=== PATIENT | male | born 1955 | race Caucasian/White ===

== ENCOUNTER 2019-12-14 11:38 | Day surgery (SDC) | payer MEDICARE, SELFPAY ==
[2019-12-14 12:33] VITALS: BMI 31.3
[2019-12-14 12:41] VITALS: BP 153/93; PULSE 64; RESP 16; TEMP 36.6; O2SAT 96
--- NOTE | 2019-12-14 14:26 | PC.NURSE ---
patient stated left side, md watts verified left side, marked left side. told bart at desk to change patients schedule to state left not the right
--- NOTE | 2019-12-14 14:35 | HO.ANESPROP2 ---
HPI - Anesthesia Eval Consult details Narrative: 63 m for stent removal, prior anesthesia for colonosopies and renal stents uneventful PMFSH Past Medical History Medical History Former cigarette smoker Kidney stones Social History Social History Smoking Status: Former smoker Smoked in Last 30 Days: No Patient Interested in Nicotine Replacement: No Patient Given Instructions on How to Stop Smoking: No Second Hand Smoke Exposure: No Use of substances other than those prescribed or required for medical reasons: No Advance Directives: No Advance Directives Information Provided: Yes Meds Allergies Allergy/AdvReac Type Severity Reaction Status Date / Time No Known Allergies Allergy Verified 12/14/19 12:32 [No Known Allergies*] Home Medications Medication Instructions Recorded Confirmed Type atenolol 100 mg PO DAILY 12/14/19 12/14/19 History escitalopram oxalate 10 mg PO DAILY 12/14/19 12/14/19 History finasteride 5 mg PO DAILY 12/14/19 12/14/19 History simvastatin 20 mg PO DAILY 12/14/19 12/14/19 History terazosin 10 mg PO BEDTIME 12/14/19 12/14/19 History warfarin [Jantoven] 4 mg PO DAILY 12/14/19 12/14/19 History Exam Exam Date and Time: December 14, 2019 1435 Height,Weight and Vital Signs: Height 5 ft 7 in Weight 90.718 kg Last Vital Signs Temp 97.8 F 12/14/19 12:41 Pulse 64 12/14/19 12:41 Resp 16 12/14/19 12:41 BP 153/93 H 12/14/19 12:41 Pulse Ox 96 12/14/19 12:41 Assessment and Plan Assessment Anesthesia Assessment: Anesthesia Plan Discussed, Consent Obtained and Chart Reviewed Final Anesthetic Review NPO: Yes ASA Class: II Final Preanesthetic Review: No Changes in Pt Med Stat, Meds & Allergies Reviewed, Consent Obtained/Reviewed, Med/Surg/Anes Hx Reviewed and Anes Risks/Benef Reviewed Patient Risk: Intermediate Procedure Risk: Low Anesthetic Plan Anesthetic Plan: GA Disposition: Standard PACU
[2019-12-14] MEDS: Lactated Ringers 1,000 ML 50 ML IVCONT (15:28)
--- NOTE | 2019-12-14 16:51 | PM.OP ---
Brief Operative Note Date of procedure: 12/14/19 Pre-op diagnosis: left retained ureteric stent Post-op diagnosis: same Procedure: cysto/left retrograde, ureteroscopy, stent removal Anesthesia: GLMA Surgeon: Fermín Mcdonald Pathology: none sent Condition: stable Disposition: same day
[2019-12-14 17:00] VITALS: BP 107/64; PULSE 70; RESP 16; TEMP 36.6
[2019-12-14 17:05] VITALS: BP 112/72; PULSE 70; RESP 16; O2SAT 93
[2019-12-14 17:10] VITALS: BP 114/77; PULSE 69; RESP 18; O2SAT 95
[2019-12-14 17:15] VITALS: BP 113/76; PULSE 71; RESP 16; O2SAT 95
[2019-12-14 17:30] VITALS: BP 119/80; PULSE 72; RESP 16; O2SAT 95
--- NOTE | 2019-12-14 17:57 | PC.NURSE ---
ANESTHESIA UPDATED AND OK'D TO DISCHARGE.
--- NOTE | 2019-12-15 20:38 | OP_ITS ---
SURGEON: Fermín Mcdonald MD PREOPERATIVE DIAGNOSIS: Retained left ureteric stent. POSTOPERATIVE DIAGNOSIS: Retained left ureteric stent. PROCEDURE PERFORMED: Ureteroscopy, left with foreign body retrieval. ESTIMATED BLOOD LOSS: COMPLICATIONS: ANESTHESIA: General. ASSISTANTS: SPECIMENS: INDICATIONS FOR PROCEDURE: This is a very pleasant 64-year-old male. He had undergone a stone procedure. The double-J stent had been placed, migrated up to the ureter and the bone was unable to be grasped in the office. He presents today for removal. DESCRIPTION OF PROCEDURE: After informed consent was verified, the patient was brought to the operating room and placed in supine position. Anesthesia administered per protocol. He was prepped and draped in a sterile fashion and modified dorsal lithotomy position. A safety pause time-out was performed. Antibiotics had been given. A rigid ureteroscope was advanced per urethra into the bladder. Ureteric orifice was seen and placed into the ureteric orifice. The bottom of the stent was encountered. Using a ZeroTip basket, we were able to base of the stent, grasped this, and removed this. He tolerated the procedure well, was extubated in the operating room, and transferred in stable condition to the recovery area. DRAINS: None. MD SYLVIE Shore/MALATHI / [id number]
== END 2019-12-14 17:56 | disposition home or self-care (01) ==
PROVIDERS: Urology; PCP Internal Medicine; Visit Provider Internal Medicine
PROC: (CPT 52310; principal; 2019-12-14 13:00)
DX: Z46.6 Encounter for fitting and adjustment of urinary device (principal); Z87.442 Personal history of urinary calculi; Z87.891 Personal history of nicotine dependence; Z79.899 Other long term (current) drug therapy; Z96.0 Presence of urogenital implants
CPT/HCPCS: 52315; J1100; J2250; J2405; J3010